=== PATIENT | male | born 1960 | race Caucasian/White ===

== ENCOUNTER → 2024-01-30 11:54 | Outpatient (REF) | payer OTHER, SELFPAY | LOC: HWRAD 11:54 | PROVIDERS: ATTENDING PHYSICIAN Family Medicine | DX: F17.200 Nicotine dependence, unspecified, uncomplicated (principal); R05.3 Chronic cough | CPT/HCPCS: 71046 ==

== ENCOUNTER 2024-02-04 14:49 | Emergency (ER) | payer OTHER, SELFPAY ==
[2024-02-04 15:00] VITALS: BP 115/72
[2024-02-04 15:29] LABS: % Basophils 0.5 % (0-2); % Immature Granulocytes 0.4 % (0-0.5); % Neutrophils 69.1 % (42.2-75.2); Absolute Eosinophils 0.1 10^3/uL (0-0.7); Absolute Lymphocytes 1.8 10^3/uL (1.2-3.4); Absolute Monocytes 0.6 10^3/uL (0.1-0.6); Absolute Neutrophils 5.5 10^3/uL (1.4-6.5); Hematocrit 45.5 % (39.0-52.0); Hemoglobin 15.5 g/dL (13.0-18.0); Mean Corp Hgb Conc. 34.1 g/dL (33.0-37.0); Mean Corpuscular Hgb 32.8 pg (27.0-31.0); Mean Corpuscular Volume 96.4 fL (80.0-94.0); Mean Platelet Volume 10.1 fL (7.4-10.4); Nucleated Red Blood Cells % 0 % (-); Platelet Count 230 10^3/uL (130-400); Red Blood Cell Count 4.72 10^6/uL (4.70-6.10); Red Cell Dist. Width 13.6 % (11.5-14.5)
[2024-02-04 15:40] LABS: ALT (SGPT) 26 U/L (0-50); AST (SGOT) 30 U/L (17-59); Albumin 4.4 g/dl (3.5-5.0); Alkaline Phosphatase 90 U/L (38-126); Blood Urea Nitrogen 21 mg/dl (9-20); Calcium 9.6 mg/dl (8.4-10.2); Carbon Dioxide 26 mmol/L (22-30); Chloride 107 mmol/L (98-107); Glucose 107 mg/dl (70-99); Potassium 3.9 mmol/L (3.5-5.1); Sodium 143 mmol/L (135-145); Total Bilirubin 0.4 mg/dl (0.2-1.3); Total Protein 6.9 g/dl (6.3-8.2); eGFR > 60.00
[2024-02-04 15:52] LABS: Troponin I < 0.012 ng/ml
--- NOTE | 2024-02-04 15:53 | ED.GENMED ---
History of Present Illness
General
Chief Complaint: Abnormal Lab Value
Source: patient and records
Time Seen by Provider: 02/04/24 15:35
History of Present Illness
History of Present Illness:
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 Patient had a 1 hour hour episode of R eye vision loss on 01/27/24. He states his
vision was blurry at that time and then went black for 1 hour. His vision symptoms have since resolved. He is asymptomatic currently other than his baseline L sided facial droop. He denies any headache, dizziness, weakness, paresthesias.
He was seen by his eye doctor and his PCP after the episode for these symptoms. His PCP ordered an outpatient CTA head/neck which was unable to be scheduled until today. He was called by his PCP due to abnormal results of the CT and was told to go
to the ED for evaluation. CTA head/neck today revealed 'There is occlusion of the right carotid bifurcation with scant reconstitution from the extracranial ICA extending to the carotid terminus with additional nonopacification of the carotid
terminus, suspicious for tandem occlusion.'
Phy Exam
General Physical Exam
General Presentation: well appearing and no apparent distress
General age: appears stated age
General Skin: warm and dry
General Habitus: normal
General Mental: alert
Eye Exam
Eye Exam: PERRL and EOMI
Cardiovascular Exam
Cardiovascular Exam: regular rate/rhythm, no edema and no murmur
Pulmonary Exam
Pulmonary Exam: lungs clear, no respiratory distress, no crackles and no wheezing
Neurological Exam
Neurological Exam: alert, no motor deficits, no sensory deficits and other (Chronic L facial droop present. CN 2-12 otherwise intact. PERRL. EOMs intact. Visual wright normal. 5/5 strength and sensation intact in all extremities. Negative drift x4.
Normal finger to nose and heel to cornell bilaterally. )
NIH Stroke Score
Level of Consciousness: 0 - Alert
LOC questions: 0-Answers both correctly
LOC Commands: 0-Performs both correctly
Best Gaze: 0-Normal
Visual Wright: 0=Normal, no visual loss
Facial palsy: 0=Normal, symmetrical
Motor - Right Arm: 0=No drift 10 seconds
Motor - Left Arm: 0=No drift 10 seconds
Motor - Right Le-No drift 5 seconds
Motor - Left Le-No drift 5 seconds
Limb Ataxia: 0-Absent
Sensation: 0-Normal
Best Language: 0-No aphasia
Dysarthria: 0-Normal
Extinction and Inattention: 0-No abnormality
Total Score:: 0
Skin Exam
Skin Exam: normal color and warm/dry
Course
Orders/Labs/Results
Orders:
Orders
02/04/24 15:03
EKG [Electrocardiogram (*1)] Urgent
Reason for Study: Other
Other Reason for Exam: neck pain
EKG- Treatment ONCE
02/04/24 15:14
CBC/With Diff [Complete Blood Count/With Diff] Urgent
CMP [Comprehensive Metabolic Panel] Urgent
Troponin I Urgent
02/04/24 17:54
Aspirin Chewable [Low Strength Aspirin] 81 mg PO NOW STA
Atorvastatin [Lipitor] 40 mg PO NOW STA
Clopidogrel Bisulfate [Plavix] 75 mg PO NOW STA
Abnormal Lab Results
02/04/24
15:14
MCV 96.4 H fL
(80.0-94.0)
MCH 32.8 H pg
(27.0-31.0)
BUN 21 H mg/dl
(9-20)
Glucose 107 H mg/dl
(70-99)
02/04/24 15:14
02/04/24 15:14
Vital Signs
Initial and Last Documented VS:
Initial Vital Signs
Temp Pulse Resp BP Pulse Ox
98.2 F 87 18 115/72 98
02/04/24 15:00 02/04/24 15:00 02/04/24 15:00 02/04/24 15:00 02/04/24 15:00
Last Documented Vital Signs
Temp Pulse Resp BP Pulse Ox
98.2 F 86 20 119/74 94
02/04/24 15:00 02/04/24 17:45 02/04/24 17:45 02/04/24 17:00 02/04/24 17:45
MDM/Problems Addressed
Differential Diagnosis Includes:
63yoM here for an abnormal outpatient CTA head/neck. He had a transient episode of R eye vision loss last week which has resolved. Currently asymptomatic. CTA showed occlusion of R carotid bifurcation. He has no deficits on exam other than his
chronic L sided facial droop from a previous [place] Palsy. NIHSS 0. Differential diagnosis includes but is not limited to: CVA, TIA, atherosclerosis
Initial ED plan: Check labs and EKG. Will discuss with vascular surgery.
*EKG
Interpreted by ED Provider?: Yes
EKG Intrepretation Date: 02/04/24
EKG Intrepretation Time: 16:06
Interpretation: normal
Heart Rate: 80
Rate: normal
Rhythm: sinus
Cornelius: normal axis
Interval: normal interval
QRS Pattern: normal QRS
Ischemia: no ischemia
*Critical Care Note
Total Time (30-74mins, 75-104mins- exclusive of procedures): Not Applicable
Update Note
Update Note:
I discussed case with both vascular surgery (Dr. Dang) and neurology (Dr. Gates). No acute interventions needed per vascular. Vascular surgery recommending outpatient f/u in 4-6 weeks. Neurology recommending outpatient MRI, BP control, and starting
patient on aspirin, Plavix, and a statin. Do not feel that this is unreasonable as findings on CTA are subacute and likely occurred last week during his episode of vision loss. Recommendations were discussed at length with patient and family.
Prescriptions provided for aspirin, Plavix, and atorvastatin. Discussed need for close outpatient f/u with PCP, neurology, and vascular surgery. Strict ED return precautions discussed including any new visual or neurologic symptoms. He expressed
understanding and is agreeable to plan. He was discharged in stable condition.
ED Attending Note
-
Portions of this chart may have been created with voice recognition software.� Occasional wrong word or��sound alike� substitutions may have occurred due to the inherent limitations of voice recognition software.
Discharge Plan
Departure
Patient Disposition: Home (Routine Discharge)
Date of Disposition: 02/04/24
Time of Disposition: 17:55
Patient with high blood pressure during this ER visit?: No
Discharge Problem:
ICAO (internal carotid artery occlusion)
Instructions: Mediterranean Diet, Atorvastatin, Clopidogrel, Stroke - Discharge instructions
Prescriptions:
New
aspirin 81 mg tablet,chewable
81 mg PO DAILY Qty: 30 0RF
clopidogrel [Plavix] 75 mg tablet
75 mg PO DAILY Qty: 30 0RF
atorvastatin 40 mg tablet
40 mg PO QPM Qty: 30 0RF
Referrals:
Randy Gates MD [Active] -
Ivanna Henry DO [Family Provider] -
Escobar Dang MD [Active] -
Activity Restrictions/Additional Instructions:
Take aspirin, Plavix, and atorvastatin as prescribed.
Please call your family doctor tomorrow for follow-up. You will need an outpatient MRI for further evaluation of the abnormal findings on your CT scan.
You should also follow-up with neurology and vascular surgery.
Return to the ER immediately with any new neurologic symptoms.
Interventions
Interventions:
*Risk Screen - Suicide Last Done: 02/04/24 15:00
*General Assessment Last Done: 02/04/24 15:00
*Neglect/Abuse Screening Last Done: 02/04/24 15:00
ED- Fall Risk Assessment Last Done: 02/04/24 16:11
*Nursing Disposition Last Done: 02/04/24 18:29
Discharge Date and Time
Discharge Date/Time: 02/04/24 18:30
Print Language: [id number]
[2024-02-04 16:00] VITALS: BP 119/67
[2024-02-04 16:14] VITALS: BMI 26.6
[2024-02-04 17:00] VITALS: BP 119/74
[2024-02-04] MEDS: LIPITOR 40 MG PO (18:25)
[2024-02-04] MEDS: LOW STRENGTH ASPIRIN 81 MG PO (18:25)
[2024-02-04] MEDS: PLAVIX 75 MG PO (18:26)
== END 2024-02-04 18:30 | disposition home or self-care (01) ==
LOC: EMR 14:49
PROVIDERS: EMERGENCY PHYSICIAN Student in an Organized Health Care Education/Training Program; FAMILY PHYSICIAN Family Medicine
DX: I65.21 Occlusion and stenosis of right carotid artery (principal); F41.9 Anxiety disorder, unspecified
CPT/HCPCS: 99283; 70496; 70498; 80053; 84484; 85025; 93005; Q9967